=== PATIENT | female | born 1970 | race Caucasian/White ===

== ENCOUNTER → 2017-12-02 | Outpatient (CLI) | payer BC ==
[~2017-12-02] MED LIST: CEPH500 PO; CODACE30 PO; CRUTCH3 USE; CRUTCH4 USE; HYDACE10B PO; HYDACE5 PO; IBUP800 PO; KETO10 PO; LEVSOD75 PO; LEVSOD88; LORA2 PO; META800 PO; METPRE4DP PO; NAPR500 PO; NAPR550 PO; Norco 5-325 Ta1 EACH PO; OFLO.3OPSO BOTHEYES; ONDA4 PO; PHENTERMINE; PROM25 PO; Phentermine HCl30 MG; RXHYDACE PO; RXTRAM50 PO; SULTRIDS PO; SYNTHROID; TRAM50 PO; [UNRECOGNIZED DRUG - REMARK]
[2017-12-04 13:59] LABS: HPV Genotype 16 Not Detected (NOTDET); HPV Genotype 18 Not Detected (NOTDET)
[2017-12-09 15:03] LABS: HPV High Risk Other Not Detected (NOTDET)
== END | disposition home or self-care (01) ==
LOC: OLS 14:57
PROVIDERS: Nurse Practitioner Women's Health
DX: Z12.4 Encounter for screening for malignant neoplasm of cervix (principal)
CPT/HCPCS: 87624; G0123

== ENCOUNTER → 2024-06-02 | Outpatient (CLI) | payer OTHER | END | disposition home or self-care (01) | LOC: LAB SHORT 15:32 → LAB 15:32 | DX: K13.0 Diseases of lips (principal); L30.4 Erythema intertrigo | CPT/HCPCS: 87070; 87077; 87186; 87205 ==